=== PATIENT | male | born 1985 | race Caucasian/White ===

== ENCOUNTER 2020-12-03 10:09 | Outpatient (REF) | payer OTHER, SELFPAY ==
[2020-12-03 10:32] LABS: MANUAL DIFF FLAG NO
[2020-12-03 10:36] LABS: Basophils Absolute Auto 0.1 X10*3/uL (0.0-0.2); Basophils Percent Auto 1.3 % (0-2); Eosinophils Absolute Auto 0.2 X10*3/uL (0.0-0.4); Eosinophils Percent Auto 3.9 % (0-4); Imm Gran Abs Auto 0.01 X10*3/uL (0.00-0.03); Imm Gran Pct Auto 0.3 % (0.0-0.4); Lymphocytes Absolute Auto 1.6 X10*3/uL (1.2-4.9); Lymphocytes Percent Auto 42.2 % (20-40); Mean Corpuscular HGB Conc 33.3 g/dl (31.0-36.0); Mean Platelet Volume 10.2 fL (9.4-12.4); Monocytes Absolute Auto 0.5 X10*3/uL (0.1-1.2); Monocytes Percent Auto 12.2 % (2-11); Neutrophils Absolute Auto 1.5 X10*3/uL (2.0-8.3); Neutrophils Percent Auto 40.1 % (45-73); Platelet Count 190 X10*3/uL (160-400); Red Blood Count 4.84 X10*6/uL (4.60-5.80); Red Cell Distribution Width 13.8 % (11.0-16.0); White Blood Count 3.8 X10*3/uL (4.8-10.8)
[2020-12-03 11:00] LABS: Alanine Aminotransferase 981 U/L (0-40); Albumin Level 4.5 g/dL (3.5-5.0); Alkaline Phosphatase 152 U/L (39-117); Anion Gap 10 (12-20); Aspartate Amino Transferase 430 U/L (5-37); Bilirubin Total 1.4 mg/dL (0.0-1.0); Blood Urea Nitrogen 17 mg/dL (9-16); Calcium 9.9 mg/dL (8.4-10.2); Carbon Dioxide 30 mmol/L (22-29); Chloride 103 mmol/L (96-108); Cholesterol 139 mg/dL; Estimated Glomerular Filt Rate > 60; Glucose Fasting 91 mg/dL (60-99); HDL Cholesterol 52 mg/dL; LDL Cholesterol Calculated 66 mg/dl; Potassium 4.4 mmol/L (3.3-5.1); Sodium 139 mmol/L (135-145); Total Protein 7.7 g/dL (6.5-8.0); Triglycerides 106 mg/dL
[2020-12-05 08:18] LABS: HBsAGNum1 0.93 S/CO (0.00-0.99); Hepatitis B Surface Antigen Negative (Negative); ~HepC Num1 13.51 S/CO (0.00-0.79); ~Hepatitis C Antibody Reactive (Nonreactive)
[2020-12-05 08:30] LABS: Hepatitis B Core Antibody Nonreactive (Nonreactive); ~Hepatitis B Surface Antibody REACTIVE (Nonreactive)
[2020-12-07 08:35] LABS: HBS Num1 186.99 mIU/mL (0-7.99); HBc Num1 0.06 S/CO (0.00-0.79); Hepatitis A Antibody IgM 0.16 Index (0-0.79); ~Hepatitis A Antibody IgM Nonreactive (Nonreactive)
== END 2020-12-03 10:10 | disposition home or self-care (01) ==
LOC: HO.LAB 10:09
PROVIDERS: PCP Nurse Practitioner Family; Visit Provider Nurse Practitioner Family
DX: B19.20 Unspecified viral hepatitis C without hepatic coma (principal)
CPT/HCPCS: 36415; 80053; 80061; 85025; 86704; 86706; 86709; 86803; 87340

== ENCOUNTER → 2021-03-09 09:25 | Outpatient (BNVA) | payer OTHER, SELFPAY | PROVIDERS: PCP Nurse Practitioner Family; Referring Provider Nurse Practitioner Family; Visit Provider Internal Medicine Gastroenterology | DX: B19.20 Unspecified viral hepatitis C without hepatic coma (principal); Z79.899 Other long term (current) drug therapy | CPT/HCPCS: 99202 ==

== ENCOUNTER 2021-03-17 09:22 | Outpatient (REF) | payer OTHER, SELFPAY ==
--- NOTE | ~2021-03-17 | US_ITS ---
EXAMINATION: US ABDOMEN COMPLETE CLINICAL INFORMATION: Hepatitis C. COMPARISON: CT abdomen and pelvis 01/11/2020. TECHNIQUE: Real-time imaging of the abdominal viscera. FINDINGS: PANCREAS: Normal. ABDOMINAL AORTA: The proximal, mid, and distal segments are normal in caliber. INFERIOR VENA CAVA: Visualized portions are normal. LIVER: Normal. The liver is normal in size. The liver contour is normal. Parenchymal echogenicity is normal. No focal hepatic lesion. There is no intrahepatic biliary duct dilatation seen. GALLBLADDER: Normal. The gallbladder is physiologically distended without evidence of stones, sludge, polyps, wall thickening or pericholecystic fluid. COMMON BILE DUCT: Normal in caliber measuring 0.4 cm in diameter. RIGHT KIDNEY: Normal. No hydronephrosis. No renal calculi or focal parenchymal lesions. The kidney measures 11.7 cm in maximum dimension. LEFT KIDNEY: Normal. No hydronephrosis. No renal calculi or focal parenchymal lesions. The kidney measures 11.1 cm in maximum dimension. SPLEEN: Normal. The spleen measures 10.5 cm in maximum dimension. FREE FLUID: None. US/US abdomen complete IMPRESSION: No significant abnormality on ultrasound of the abdomen appreciated. No hepatic mass identified.
== END 2021-03-17 09:23 | disposition home or self-care (01) ==
LOC: HO.HMGCX 09:22
PROVIDERS: PCP Internal Medicine; Visit Provider Internal Medicine Gastroenterology
DX: B19.20 Unspecified viral hepatitis C without hepatic coma (principal)
CPT/HCPCS: 76700

== ENCOUNTER 2021-06-08 07:43 | Outpatient (REF) | payer OTHER, SELFPAY ==
[2021-06-08 08:28] LABS: Hematocrit 43.7 % (42-52); Hemoglobin 14.9 g/dl (14.0-18.0); Mean Corpuscular HGB Conc 34.1 g/dl (31.0-36.0); Mean Corpuscular Volume 90.9 fL (80-98); Mean Platelet Volume 10.4 fL (9.4-12.4); Platelet Count 188 X10*3/uL (160-400); Red Blood Count 4.81 X10*6/uL (4.60-5.80); Red Cell Distribution Width 12.1 % (11.0-16.0); White Blood Count 5.1 X10*3/uL (4.8-10.8)
[2021-06-08 08:57] LABS: Alanine Aminotransferase 246 U/L (0-40); Albumin Level 4.6 g/dL (3.5-5.0); Alkaline Phosphatase 74 U/L (39-117); Aspartate Amino Transferase 107 U/L (5-37); Bilirubin Direct 0.4 mg/dL (0.0-0.5); Iron 135 mcg/dL (45-160); Percent Iron Saturation 36 % (15-50); Total Iron Binding Capacity 373 mcg/dL (228-428); Total Protein 7.5 g/dL (6.5-8.0); Unsaturated Iron Binding 238 ug/dL
[2021-06-08 09:18] LABS: Ferritin 177 ng/mL (20-250); TSH reflex Free T4 0.96 uIU/mL (0.32-4.0)
[2021-06-09 08:58] LABS: HIV AB/AG Nonreactive (Nonreactive); HIV Num 1 0.08 S/CO (0.00-0.99)
[2021-06-09 09:01] LABS: Hepatitis A Antibody IgG Nonreactive (Nonreactive); ~Hepatitis A Antibody IgG 0.27 S/CO (0.00-0.99)
[2021-06-12 16:12] LABS: Smooth Muscle Antibody <20 U (<20)
[2021-06-13 14:31] LABS: Anti Nuclear Antibody Screen POSITIVE (NEGATIVE); Anti Nuclear Antibody Titer 1:40 titer
[2021-06-13 20:07] LABS: FIB-ALT 216 U/L (9-46); FIB-Alpha-2-Macroglobulin 199 mg/dL (106-279); FIB-Apolipoprotein A1 137 mg/dL (94-176); FIB-GGT 117 U/L (3-90); FIB-Haptoglobin 24 mg/dL (43-212); FIB-Total Bilirubin 0.9 mg/dL (0.2-1.2); Liver Fibrosis Score 0.63; Liver Fibrosis Stage F3; Nec Inflam Act Grade A3; Nec Inflam Act Score 0.89
== END 2021-06-08 07:44 | disposition home or self-care (01) ==
LOC: HO.LAB 07:43
PROVIDERS: PCP Internal Medicine; Visit Provider Internal Medicine Gastroenterology
DX: B19.20 Unspecified viral hepatitis C without hepatic coma (principal)
CPT/HCPCS: 36415; 80076; 81596; 82728; 83540; 84443; 85027; 86038; 86039; 86255; 86708; 87389; 99212

== ENCOUNTER 2021-10-06 15:08 | Emergency (ER) | payer OTHER, SELFPAY | END 2021-10-06 17:04 | disposition left against medical advice (07) | PROVIDERS: Emergency Provider Emergency Medicine | DX: R51.9 Headache, unspecified (principal); Z20.822 Contact with and (suspected) exposure to COVID-19 ==

== ENCOUNTER 2021-10-13 10:34 | Emergency (ER) | payer OTHER, SELFPAY ==
[2021-10-13 11:21] VITALS: BP 151/76; PULSE 66; RESP 18; TEMP 36.9; O2SAT 100; BMI 29.0
[2021-10-13 11:47] LABS: COVID-19 Test Negative (Negative)
--- NOTE | 2021-10-13 14:23 | ED.HA ---
HPI - Headache General Chief Complaint: Headache Stated Complaint: headache Time Seen by Provider: 10/13/21 14:11 Source: patient Mode of arrival: ambulatory History of Present Illness HPI Narrative: 36-year-old male with past medical history hepatitis-C, migraines, presenting to the ED complaining of 10 days of migraine headache noted behind left eye radiating to left ear. Also reports mild photosensitivity. Reports headache has been intermittent, relieved with Tylenol/ Motrin at home, however recurring daily, denies taking any analgesics today. Admits to similar symptoms in the past however worse now. Denies fever, chills, vision change/ loss, nausea/ vomiting, headache be maximal onset. MD elicited complaint: headache and migraine Onset (ago): day(s) Related Data Home Medications Medication Instructions Recorded Confirmed buprenorphine 8 mg-naloxone 2 mg 2 film SUBLINGUAL DAILY 11/30/20 06/08/21 sublingual film (Suboxone) Previous Rx's Medication Instructions Recorded hnvpbwitac-xuwiilcrezenn-ozwtdpkp 1 cap PO Q4-6H PRN #10 cap 10/13/21 50 mg-300 mg-40 mg capsule (Fioricet) Allergies Allergy/AdvReac Type Severity Reaction Status Date / Time No Known Allergies Allergy Mild NOT Verified 10/13/21 11:21 APPLICABLE Review of Systems Review of Systems: Constitutional: No Fever, No Chills, No Fatigue, No Malaise ENT/Mouth: No Ear Pain, No Nasal Congestion, No Sinus Pain, No Hoarseness, No sore throat Eyes: No Eye Pain, No Swelling, No Discharge, No Vision Changes, + photophobia Cardiovascular: No Chest Pain, No SOB Respiratory: No Cough, No Dyspnea Gastrointestinal: No Nausea, No Vomiting,No Abdominal pain Genitourinary: No Dysuria, No Urinary Frequency, No Hematuria, No Flank Pain Musculoskeletal: No joint pain, No Myalgias, No Joint Swelling Skin: No Skin Lesions, No rash Neuro: No Weakness, No Numbness, No Paresthesias, No Dizziness, + Headache Yes all other systems are reviewed and are negative [facility] Past Medical History Attestation statement: The following information was validated with the patient. Medical History Hepatitis C Surgical History History of appendectomy Hx of hand surgery Family History Family History Father In good health Mother In good health Daughter In good health Son In good health Son In good health Sister No problems noted. Sister No problems noted. Brother No problems noted. Brother No problems noted. Social History Social History Household Members: Family Alcohol intake: current Cigarettes Per Day: 4 Advance Directives: No Advance Directives Information Provided: No Physical Exam Vital Signs: Vital Signs: Last Vital Signs Temp 98.4 F 10/13/21 11:21 Pulse 66 10/13/21 11:21 Resp 18 10/13/21 11:21 BP 151/76 H 10/13/21 11:21 Pulse Ox 100 10/13/21 11:21 BMI result Body Mass Index 29.0 Const: General: cooperative, healthy appearing, no acute distress, well developed, alert and awake Orientation/consciousness: patient oriented x3 Limitations: no limitations HENMT: Head: Yes normal to inspection and Yes atraumatic Ears: hearing grossly normal bilaterally, external ears normal and TM's normal bilaterally General nose exam: Normal external nose present Face and sinus: Yes normal facial exam Mouth: Normal oral and palatal mucosa present Throat: Yes posterior oropharynx normal and Yes tonsils normal Eyes: General: appearance normal, both eyes and all related structures Pupils: Equal, round and reactive pupils present EOM: EOMs intact bilaterally Direct Ophthalmoscopy: normal light reflex and no photophobia Neck: Neck: Yes normal visual inspection, Yes full ROM, Yes no lymphadenopathy and Yes no meningeal signs Resp: Effort & Inspection: normal respiratory effort and no respiratory distress Auscultation: clear to auscultation bilaterally Cardio: Rate: regular rate Heart sounds: S1 normal heart sound present and S2 normal heart sound present GI: Inspection: Yes normal to inspection : General: Yes no CVA tenderness Back/Spine/Pelvis: Back: no CVA tenderness Skin: Rashes: no rashes Wounds: no wounds Neuro: General: patient oriented x3, gait normal, tone normal, moves all extremities, no meningeal signs, no focal motor deficits and CN's II-XI intact bilaterally Cranial nerves: Yes Equal, round and reactive pupils present Gait exam (Neuro): Normal gait present Motor exam (neuro): 5/5 motor strength present throughout Extrem: General: Yes normal to inspection Course Course Course Narrative: -1453-- labs unremarkable. On re-evaluation patient reports symptomatic improvement / resolution, feels safe for discharge home at this time. Worrisome signs and symptoms and strict return precautions discussed. Will DC patient home with Fioricet MDM - Headache MDM Narrative Medical decision making narrative: 36-year-old male with past medical history hepatitis-C, migraines, presenting to the ED complaining of 10 days of migraine headache noted behind left eye radiating to left ear. On exam vital signs stable, NAD, nontoxic appearing, no meningeal signs. Concern for migraine headache/tension headache vs viral syndrome/ COVID-19. Low concern for SAH, meningitis, or CVT Plan: Labs, IVF, symptomatic treatment, re-evaluated Differential Diagnosis Differential diagnosis: Likely migraine, tension headache and headache Medical Records Attestation: I reviewed the patient's medical records. Lab Data Attestation: I reviewed the patient's lab results. Result diagrams: 10/13/21 14:28 10/13/21 14:28 Labs: Lab Results 10/13/21 10/13/21 10/13/21 Range/Units 11:26 14:28 14:28 WBC 6.6 (4.8-10.8) X10*3/uL RBC 4.70 (4.60-5.80) X10*6/uL Hgb 14.5 (14.0-18.0) g/dl Hct 43.1 (42.0-52.0) % MCV 91.7 (80.0-98.0) fL MCH 30.9 (27.0-33.0) pg MCHC 33.6 (31.0-36.0) g/dl RDW 12.9 (11.0-16.0) % Plt Count 202 (160-400) X10*3/uL MPV 10.2 (9.4-12.4) fL Immature Gran % (Auto) 0.2 (0.0-0.4) % Neut % (Auto) 55.7 (45-73) % Lymph % (Auto) 32.1 (20-40) % Blanco % (Auto) 8.9 (2-11) % Eos % (Auto) 2.3 (0-4) % Baso % (Auto) 0.8 (0-2) % Lymph # (Auto) 2.1 (1.2-4.9) X10*3/uL Blanco # (Auto) 0.6 (0.1-1.2) X10*3/uL Eos # (Auto) 0.2 (0.0-0.4) X10*3/uL Baso # (Auto) 0.1 (0.0-0.2) X10*3/uL Abs Immat Gran (auto) 0.01 (0.00-0.03) X10*3/uL Absolute Neuts (auto) 3.7 (2.0-8.3) x10*3/uL Absolute Nucleated RBC 0.000 (0.0-0.012) X10*3/uL Nucleated RBC % (auto) 0.0 (0.0-0.2) /100WBC Sodium 139 (135-145) mmol/L Potassium 4.0 (3.3-5.1) mmol/L Chloride 104 (96-108) mmol/L Carbon Dioxide 29 (22-29) mmol/L Anion Gap 10 L (12-20) BUN 14 (9-16) mg/dL Creatinine 0.79 (0.5-1.4) mg/dL Estim Creat Clear Calc 127.2 Estimated GFR > 60 Random Glucose 106 (60-115) mg/dL Calcium 9.4 (8.4-10.2) mg/dL COVID-19 (BERNARDA) Negative (Negative) COVID-19 Clin Com See Note Discharge Plan Discharge Clinical Impression: Migraine Qualifiers: Migraine type: unspecified Status migrainosus presence: without status migrainosus Intractability: not intractable Qualified Code(s): G43.909 - Migraine, unspecified, not intractable, without status migrainosus Patient Disposition: Home, Self-Care Instructions: Tension Headache (ED) Additional Instructions: your blood work was reassuring today in the emergency department. Push fluids at home, rest Fioricet is a combination migraine medication, take as needed you may also continue to take Motrin/ ibuprofen at home if headaches persist / worsen, become unbearable, you have persistent nausea/ vomiting, vision change or loss please return to the emergency department Prescriptions: New rucwsvukmw-ltlfmxutoejfh-cmsr [Fioricet] 50-300-40 mg capsule 1 cap PO Q4-6H PRN (Reason: headache) Qty: 10 RF: 0 No Action buprenorphine-naloxone [Suboxone] 8-2 mg film 2 film sublingual DAILY RF: 0 Referrals: Physician,Unknown J [Primary Care Provider] - 2 days
[2021-10-13 14:35] LABS: MANUAL DIFF FLAG NO
[2021-10-13 14:36] LABS: Basophils Absolute Auto 0.1 X10*3/uL (0.0-0.2); Basophils Percent Auto 0.8 % (0-2); Eosinophils Absolute Auto 0.2 X10*3/uL (0.0-0.4); Eosinophils Percent Auto 2.3 % (0-4); Hematocrit 43.1 % (42.0-52.0); Hemoglobin 14.5 g/dl (14.0-18.0); Imm Gran Abs Auto 0.01 X10*3/uL (0.00-0.03); Imm Gran Pct Auto 0.2 % (0.0-0.4); Lymphocytes Absolute Auto 2.1 X10*3/uL (1.2-4.9); Lymphocytes Percent Auto 32.1 % (20-40); Mean Corpuscular HGB Conc 33.6 g/dl (31.0-36.0); Mean Corpuscular Hemoglobin 30.9 pg (27.0-33.0); Mean Corpuscular Volume 91.7 fL (80.0-98.0); Mean Platelet Volume 10.2 fL (9.4-12.4); Monocytes Absolute Auto 0.6 X10*3/uL (0.1-1.2); Monocytes Percent Auto 8.9 % (2-11); Neutrophils Absolute Auto 3.7 x10*3/uL (2.0-8.3); Neutrophils Percent Auto 55.7 % (45-73); Platelet Count 202 X10*3/uL (160-400); Red Cell Distribution Width 12.9 % (11.0-16.0); White Blood Count 6.6 X10*3/uL (4.8-10.8)
[2021-10-13] MEDS: Ketorolac Tromethamine 30 MG/ML VIAL 15 MG IVPUSH (14:36)
[2021-10-13] MEDS: diphenhydrAMINE HCL 50 MG/ML VIAL 12.5 MG IVPUSH (14:38)
[2021-10-13] MEDS: Metoclopramide HCl 10 MG/2 ML VIAL IVPUSH (14:39)
[2021-10-13 14:49] LABS: Anion Gap 10 (12-20); Blood Urea Nitrogen 14 mg/dL (9-16); Calcium 9.4 mg/dL (8.4-10.2); Carbon Dioxide 29 mmol/L (22-29); Chloride 104 mmol/L (96-108); Creatinine Clr Calc Pharmacy 127.2; Estimated Glomerular Filt Rate > 60; Glucose Random 106 mg/dL (60-115); Sodium 139 mmol/L (135-145)
== END 2021-10-13 15:22 | disposition home or self-care (01) ==
PROVIDERS: Physician Assistant; Emergency Provider Emergency Medicine
DX: G43.909 Migraine, unspecified, not intractable, without status migrainosus (principal); Z20.822 Contact with and (suspected) exposure to COVID-19; Z79.899 Other long term (current) drug therapy
CPT/HCPCS: 36415; 80048; 85025; 87635; 96374; 96375; 99284; J1200; J1885; J2765

== ENCOUNTER 2022-05-21 | Outpatient (REF) | payer OTHER, SELFPAY ==
[2022-05-21 14:56] LABS: Influenza A PCR NEGATIVE (Negative); Influenza B PCR NEGATIVE (Negative); Resp Syncy Virus RNA Qual PCR NEGATIVE (Negative); SARS COV2 PCR INHOUSE NEGATIVE (Negative)
== END 2022-05-21 00:01 | disposition home or self-care (01) ==
LOC: HO.LNP
PROVIDERS: Visit Provider Physician Assistant
DX: Z20.822 Contact with and (suspected) exposure to COVID-19 (principal)
CPT/HCPCS: 0241U

== ENCOUNTER 2022-06-21 09:22 | Emergency (ER) | payer OTHER, SELFPAY ==
--- NOTE | ~2022-06-21 | CT_ITS ---
EXAMINATION: CT LUMBAR SPINE WITHOUT CONTRAST CLINICAL INFORMATION: 36-year-old male with history of sudden onset lower back pain. COMPARISON: CT abdomen/pelvis from 01/11/2020. TECHNIQUE: Noncontrast multidetector CT imaging examination of the lumbar spine is performed. The axial images and multiplanar reformatted images are reviewed. This CT examination was performed using dose optimization techniques as appropriate, variously including the following: *Automated exposure control *Adjustment of mA and/or kV according to patient size (this includes techniques or standardized protocols for targeted exams where dose is matched to indication/reason for exam; i.e. extremities or head) *Use of iterative reconstruction technique DLP; 369 mGy-cm FINDINGS: No acute findings in the lumbosacral spine compared to 01/11/2020. The lumbar vertebra have normal density, height and alignment. No vertebral compression fracture or pars interarticularis defect. No focal lytic or osteoblastic lesion. The intervertebral disc spaces are normal at T12-L1, L1-L2, L2-L3, L3-L4 and L4-L5. At L5-S1, there is chronic mild narrowing of the posterior disc space and minimal posterior disc bulge. No significant narrowing of the spinal canal or neural foramina of the lumbar spine. The visualized sacral ala, foramina and sacroiliac joints are unremarkable. The paraspinal soft tissues have normal attenuation. No soft tissue mass or fluid collection. The visualized abdominal aorta, kidneys and retroperitoneal fat planes are maintained. CT/CT lumbar spine wo IV con IMPRESSION: No specific cause of back pain is identified. No acute abnormalities in the lumbosacral spine compared to 01/11/2020. No lytic lesions or compression fractures. There is no evidence of acute disc herniation, spinal canal stenosis or neural foraminal stenosis.
[2022-06-21 09:24] VITALS: BP 148/78; PULSE 99; RESP 18; TEMP 36.9; O2SAT 96; BMI 29.3
[2022-06-21] MEDS: Ketorolac Tromethamine 60 MG/2 ML VIAL IM (11:49)
[2022-06-21] MEDS: Cyclobenzaprine HCl 10 MG TABLET PO (11:49)
[2022-06-21] MEDS: predniSONE 20 MG TABLET 60 MG PO (11:50)
--- NOTE | 2022-06-21 12:46 | ED.BACK ---
HPI - Back Pain/Injury General Chief Complaint: Back Pain/Injury Stated Complaint: Lower back pain Time Seen by Provider: 06/21/22 11:15 Source: patient Mode of arrival: ambulatory Limitations: no limitations History of Present Illness HPI Narrative: 36-year-old male presenting with sudden onset back pain last night. Patient states he was sitting at his table after work, when he developed sudden severe onset of lower back pain. Denies any inciting incident. 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 Reports pain is relieved while he is lying flat on his back, and is worse when he is walking around, moving, or bending over. Patient was able to walk in with antalgic gait. Patient does report previous incident with similar symptoms in 2007 when he was in [employer] and he was lifting weights. Reports pain resolved within 4 days at that time. Denies headache, dizziness, chest pain, cough, shortness of breath, nausea, vomiting, diarrhea, incontinence of bowel or bladder, weakness, paresthesias, recent IVDU. MD elicited complaint: back pain Pertinent past history: prior back pain Onset (ago): day(s) Severity: severe Pain scale (0-10): 8 Similar Symptoms Previously: Yes Location: lumbar spine Radiation: none Exacerbating factors: walking and other (Bending) Relieving factors: medication (Mild relief with ibuprofen) and other (Laying flat) Associated symptoms: denies other symptoms Treatments prior to arrival: NSAIDS Related Data Home Medications Medication Instructions Recorded Confirmed buprenorphine 8 mg-naloxone 2 mg 2 film sublingual DAILY 11/30/20 10/18/21 sublingual film (Suboxone) Previous Rx's Medication Instructions Recorded dpwzikqnza-ksgonhowdegvh-qhttuubd 1 tab PO Q6H PRN pain #14 tabs 10/18/21 50 mg-325 mg-40 mg tablet carbamide peroxide 6.5 % ear drops 5 drp otic (ears) DAILY 4 days #15 10/18/21 (Debrox) mL ibuprofen 800 mg tablet 800 mg PO Q8H PRN pain #14 tabs 10/18/21 cyclobenzaprine 10 mg tablet 10 mg PO TID PRN pain #14 tabs 06/21/22 ketorolac 10 mg tablet 10 mg PO Q8H PRN pain #14 tabs 06/21/22 Allergies Allergy/AdvReac Type Severity Reaction Status Date / Time No Known Allergies Allergy Mild NOT Verified 10/18/21 14:45 APPLICABLE Review of Systems Review of Systems: Constitutional : No trauma, No Weight loss, No Fever, No Chills, ENT/Mouth : No Hearing loss, No Ear Pain, No Nasal Congestion, No Sinus Pain, No Hoarseness, No sore throat, No Rhinorrhea, No Swallowing Difficulty Cardiovascular : No Chest Pain, No SOB Respiratory : No Cough, No Dyspnea Gastrointestinal : No Nausea, No Vomiting, No Diarrhea, No abdominal Pain, No Hematochezia, No Melena Genitourinary : No Dysuria, No Urinary Frequency, No Hematuria, No Urinary or Bowel Incontinence/retention Musculoskeletal : + Back pain, No neck pain, No joint stiffness, No joint swelling Skin : No Skin Lesions, No rash or signs of infection Neuro : No Weakness, No radiation, No Numbness, No Paresthesias, No headache, no loss of bowel or bladder incontinence, no saddle anesthesia + history of IV drug usage although not within last 2 years is currently on Suboxone. Yes all other systems are reviewed and are negative [facility] Past Medical History Attestation statement: The following information was validated with the patient. Source: old records reviewed, obtained from family and nursing notes reviewed Medical History Hepatitis C Surgical History History of appendectomy Hx of hand surgery Family History Family History Father In good health Mother In good health Daughter In good health Son In good health Son In good health Sister No problems noted. Sister No problems noted. Brother No problems noted. Brother No problems noted. Social History Social History Household Members: Family Alcohol intake: current Patient Tobacco Use Status: Current everyday Tobacco user Cigarettes Per Day: 4 e-Cigarette/Vaping Use: Never Used Advance Directives: No Advance Directives Information Provided: No Physical Exam Vital Signs: Vital Signs: Last Vital Signs Temp 98.4 F 06/21/22 09:24 Pulse 99 06/21/22 09:24 Resp 18 06/21/22 09:24 BP 148/78 H 06/21/22 09:24 Pulse Ox 96 09/15/22 09:24 O2 Del Method 06/21/22 09:24 BMI result Body Mass Index 29.3 vital signs have been reviewed as normal and appeared to be correct. Blood pressure 148/78. Heart rate normal. Respiration rate normal. Temperature normal. Oxygen saturation normal. Appearance: Alert. Oriented X3. No acute distress. Head: Normal external exam. Normocephalic. Atraumatic. Eyes: PERRLA. EOMI. Conjunctiva and sclera normal. Eyelids normal. ENT: EAC normal. Pharynx normal. Uvula midline. Moist mucous membranes. No trismus noted. No drooling noted. No muffled voice noted. Neck: Normal inspection. Neck supple. FROM. No adenopathy. Thyroid Normal. No meningeal signs. No neck mass noted. CVS: Normal heart rate and rhythm. Heart sound normal. No murmurs noted. Respiratory: No respiratory distress. Painless inspiration. Breath sounds normal. No wheezes/rales/rhonchi noted. Chest nontender. No accessory muscle usage noted or decreased air movement noted. Abdomen: Soft and nontender. Bowel sounds normal in all 4 quadrants. No distention noted. No organomegaly noted. No visible injury noted. Back: + midline point tenderness of lumbar spine. No CVA tenderness. Range of motion limited due to pain. No obvious deformities, or edema. 5/5 strength hip extension/flexion, abduction, adduction. Negative straight leg raise bilaterally. No rashes/lesion/induration/fluctuance or signs infection noted. Skin: Skin warm and dry. Normal skin color. Normal skin turgor. No rashes/lesions/lacerations noted. Extremities: No lower extremity edema. Extremities exhibit normal range of motion. Extremities nontender. Neuro: Oriented X 3. No motor deficit. No sensory deficit. Reflexes normal. Patient has a normal steady gait. Course Course Course Narrative: 36-year-old male presenting with sudden,severe onset of back pain last night, has had previous episode 14 years ago. On exam, point midline tenderness to lumbar spine, no paraspinal muscle tenderness, negative straight leg test, full strength in lower extremities, range of motion limited due to pain. Patient does have history of IV drug use, but denies use within past 2 years. Concern for disc herniation vs muscle spasm, lower suspicion for osteomyelitis, no signs or symptoms of cauda equina. Reevaluation(s) Reevaluation #1: Patient decreased to 6/10 after IM torodol. Time: 13:07 Reevaluation #2: CT lumbar spine wo IV con IMPRESSION: No specific cause of back pain is identified. No acute abnormalities in the lumbosacral spine compared to 01/11/2020. No lytic lesions or compression fractures. There is no evidence of acute disc herniation, spinal canal stenosis or neural foraminal stenosis. At this time, patient stable and pain improved with IM torodol. Results of CT show no signs acute disc herniation,spinal canal stenosis or neural foraminal stenosis. No signs of infection, low concern for osteomyelitis. No neuologic deficits.Pain most likely muscular in nature. Patient stable for discharge home with NSAIDs and muscle relaxers for pain management. MDM - Back Pain/Injury Medical Records Attestation: I reviewed the patient's medical records. Imaging Data CT scan of lumbar spine without contrast: Attestation: I personally reviewed and interpreted this imaging study as follows: Radiologist's impression: FINDINGS: No acute findings in the lumbosacral spine compared to 01/11/2020. The lumbar vertebra have normal density, height and alignment. No vertebral compression fracture or pars interarticularis defect. No focal lytic or osteoblastic lesion. The intervertebral disc spaces are normal at T12-L1, L1-L2, L2-L3, L3-L4 and L4-L5. At L5-S1, there is chronic mild narrowing of the posterior disc space and minimal posterior disc bulge. No significant narrowing of the spinal canal or neural foramina of the lumbar spine. The visualized sacral ala, foramina and sacroiliac joints are unremarkable. The paraspinal soft tissues have normal attenuation. No soft tissue mass or fluid collection. The visualized abdominal aorta, kidneys and retroperitoneal fat planes are maintained. CT/CT lumbar spine wo IV con IMPRESSION: No specific cause of back pain is identified. No acute abnormalities in the lumbosacral spine compared to 01/11/2020. No lytic lesions or compression fractures. There is no evidence of acute disc herniation, spinal canal stenosis or neural foraminal stenosis.? Critical Care Time Critical Care Time Critical Care Time: No Discharge Plan Discharge Clinical Impression: Back pain Patient Disposition: Home, Self-Care Instructions: Acute Low Back Pain (ED) Additional Instructions: Take prescribed medications for severe pain. Follow-up with PCP within 2 days. If you develop new or worsening symptoms, call 911 or report to the emergency department for evaluation. Prescriptions: New cyclobenzaprine 10 mg tablet 10 mg PO TID PRN (Reason: pain) Qty: 14 0RF ketorolac 10 mg tablet 10 mg PO Q8H PRN (Reason: pain) Qty: 14 0RF Rx Instructions: First dose given in the ED IM, patient tolerated well No Action buprenorphine-naloxone [Suboxone] 8-2 mg film 2 film sublingual DAILY Rx Instructions: place 1 strip/tab under (each) side of tongue Debrox 6.5 % drops 5 drp otic (ears) DAILY 4 Days Qty: 15 0RF ibuprofen 800 mg tablet 800 mg PO Q8H PRN (Reason: pain) Qty: 14 0RF qojwrlqoxp-onmpyujtjyfma-xfhj 50-325-40 mg tablet 1 tab PO Q6H PRN (Reason: pain) Qty: 14 0RF Rx Instructions: please cancel previous RX for 60 tablets, and fill this RX for 14 Referrals: April Gill MD [Primary Care Provider] - 2 days Stand Alone Forms: Work/School Release Interventions: ED Discharge Assessment Last Done: 06/21/22 14:31 Discharge Date/Time: 06/21/22 14:31
== END 2022-06-21 14:31 | disposition home or self-care (01) ==
PROVIDERS: Emergency Provider Emergency Medicine; PCP Internal Medicine
DX: M54.50 Low back pain, unspecified (principal); Z79.899 Other long term (current) drug therapy; F17.210 Nicotine dependence, cigarettes, uncomplicated; Z71.6 Tobacco abuse counseling
CPT/HCPCS: 72131; 96372; 99283; 99284; J1885

== ENCOUNTER 2023-06-27 16:44 | Outpatient (REF) | payer MEDICAID, SELFPAY ==
[2023-06-27 17:06] LABS: MANUAL DIFF FLAG NO
[2023-06-27 17:25] LABS: Basophils Absolute Auto 0.1 X10*3/uL (0.0-0.2); Eosinophils Absolute Auto 0.2 X10*3/uL (0.0-0.4); Eosinophils Percent Auto 3.5 % (0-4); Hematocrit 43.2 % (42.0-52.0); Hemoglobin 14.6 g/dl (14.0-18.0); Imm Gran Abs Auto 0.02 X10*3/uL (0.00-0.03); Imm Gran Pct Auto 0.4 % (0.0-0.4); Lymphocytes Absolute Auto 1.7 X10*3/uL (1.2-4.9); Mean Corpuscular HGB Conc 33.8 g/dl (31.0-36.0); Mean Corpuscular Hemoglobin 29.8 pg (27.0-33.0); Mean Corpuscular Volume 88.2 fL (80.0-98.0); Mean Platelet Volume 10.3 fL (9.4-12.4); Monocytes Absolute Auto 0.5 X10*3/uL (0.1-1.2); Monocytes Percent Auto 10.6 % (2-11); Neutrophils Absolute Auto 2.6 x10*3/uL (2.0-8.3); Neutrophils Percent Auto 50.5 % (45-73); Platelet Count 192 X10*3/uL (160-400); Red Cell Distribution Width 12.5 % (11.0-16.0); White Blood Count 5.1 X10*3/uL (4.8-10.8)
[2023-06-27 17:26] LABS: Prothrombin Time 12.7 SEC (11.1-13.3)
[2023-06-27 17:45] LABS: Alanine Aminotransferase 354 U/L (0-40); Albumin Level 4.6 g/dL (3.5-5.0); Alkaline Phosphatase 100 U/L (39-117); Anion Gap 12 (12-20); Aspartate Amino Transferase 181 U/L (5-37); Bilirubin Direct 0.2 mg/dL (0.0-0.5); Bilirubin Total 0.6 mg/dL (0.0-1.0); Blood Urea Nitrogen 18 mg/dL (9-16); Calcium 9.5 mg/dL (8.4-10.2); Carbon Dioxide 25 mmol/L (22-29); Chloride 106 mmol/L (96-108); Estimated Glomerular Filt Rate > 60; Glucose Random 96 mg/dL (60-115); Potassium 3.9 mmol/L (3.3-5.1); Sodium 139 mmol/L (135-145)
[2023-06-28 03:37] LABS: CT PCR NOT DETECTED (Not Detect.); NG PCR NOT DETECTED (Not Detect.)
[2023-06-28 08:11] LABS: Syphilis Screen Nonreactive (Nonreactive)
[2023-06-28 08:28] LABS: Hepatitis A Antibody IgG REACTIVE (Nonreactive); ~Hepatitis A Antibody IgG 1.81 S/CO (0.00-0.99)
[2023-06-28 08:31] LABS: ~HepC Num1 14.99 S/CO (0.00-0.79); ~Hepatitis C Antibody Reactive (Nonreactive)
[2023-06-29 14:14] LABS: TS Negative Control Passed; TS Panel A 1; TS Panel B 1; TS Positive Control Passed; TSpotTB Negative (Negative)
[2023-07-01 12:04] LABS: HCV Log PCR 6.05 Log IU/mL (NOT DETECTED); HepC Viral Load 1130000 IU/mL (NOT DETECTED)
== END 2023-06-27 16:45 | disposition home or self-care (01) ==
LOC: HO.LAB 16:44
PROVIDERS: Visit Provider Emergency Medicine
DX: F11.20 Opioid dependence, uncomplicated (principal)
CPT/HCPCS: 0353U; 80048; 80076; 85025; 85610; 86481; 86708; 86780; 86803; 87522

== ENCOUNTER 2023-08-13 11:05 | Emergency (ER) | payer MEDICAID, SELFPAY ==
--- NOTE | 2023-08-13 12:59 | ED_ITS ---
HPI - General Adult General Chief complaint: Headache Stated complaint: Headache Time Seen by Provider: 08/13/23 12:00 Source: patient, RN notes reviewed and old records reviewed Mode of arrival: ambulatory Limitations: no limitations History of Present Illness HPI narrative: A 37-year-old male presents for evaluation of headache. His pain is frontal, behind his eyes. He describes this as ?a migraine. ? He reports that he gets these headaches approximately once per month He takes Excedrin usually with some improvement in his symptoms but has not taken it today because his pain was more severe He is due to see Neurology this coming Saturday but ?I just could not wait. ? His symptoms have been present for 2 weeks He denies any trauma to head or neck He reports he has had several CT scans of his head in the past most recently 1 year ago Related Data Home Medications Medication Instructions Recorded Confirmed buprenorphine 8 mg-naloxone 2 mg 2 film sublingual DAILY 11/30/20 10/18/21 sublingual film (Suboxone) Previous Rx's Medication Instructions Recorded iwosdazbjq-yiocbjerxajbs-brmkhjnm 1 tab PO Q6H PRN pain #14 tabs 10/18/21 50 mg-325 mg-40 mg tablet carbamide peroxide 6.5 % ear drops 5 drp otic (ears) DAILY 4 days #15 10/18/21 (Debrox) mL ibuprofen 800 mg tablet 800 mg PO Q8H PRN pain #14 tabs 10/18/21 cyclobenzaprine 10 mg tablet 10 mg PO TID PRN pain #14 tabs 06/21/22 ketorolac 10 mg tablet 10 mg PO Q8H PRN pain #14 tabs 06/21/22 bramltnwzt-kebnwguexezmu-xvizpjyy 1 cap PO Q4-6H PRN headache #14 08/13/23 50 mg-300 mg-40 mg capsule caps (Fioricet) Allergies Allergy/AdvReac Type Severity Reaction Status Date / Time No Known Allergies Allergy Mild NOT Verified 08/13/23 13:02 APPLICABLE Review of Systems 2 Constitutional: Constitutional: Denies chills, Denies fever(s) and Reports headache(s) Eyes: Eyes: Denies blurry vision and Denies loss of vision ENT: Reports headache(s) Cardiovascular: Cardiovascular: Denies chest pain and Denies dyspnea Respiratory: Respiratory: Denies cough and Denies dyspnea Gastrointestinal: Gastrointestinal: Denies abdominal pain, Denies nausea and Denies vomiting Musculoskeletal: Musculoskeletal: Denies back pain, Denies numbness and Denies tingling Neurologic: Reports headache(s), Denies loss of vision, Denies numbness, Denies tingling and Denies paresthesias PMF Past Medical History Medical History Hepatitis C Surgical History History of appendectomy Hx of hand surgery Family History Family History Father In good health Mother In good health Daughter In good health Son In good health Son In good health Sister No problems noted. Sister No problems noted. Brother No problems noted. Brother No problems noted. Social History Social History Household Members: Family Alcohol intake: current Patient Tobacco Use Status: Current everyday Tobacco user Cigarettes Per Day: 4 e-Cigarette/Vaping Use: Never Used Advance Directives: No Physical Exam ED Vital Signs: Vital Signs - 24 hr 08/13/23 13:00 08/13/23 18:44 Temperature 97.0 F 98.1 F Pulse Rate 64 64 Respiratory Rate 18 20 Blood Pressure 140/81 H 139/61 Pulse Oximetry 98 97 Oxygen Delivery Method Room Air Room Air BMI result Body Mass Index 29.2 Const General: healthy appearing, comfortable, no acute distress, alert and awake Nutritional Appearance: well nourished Orientation/consciousness: patient oriented x3 HENMT Head: Yes normocephalic and Yes atraumatic Face and sinus: Yes sinuses nontender and Yes face symmetric Eyes Eyelids: Yes eyelids normal Conjunctivae: conjunctivae normal Sclerae: sclerae normal Corneas: corneas normal Pupils: Equal, round and reactive pupils present EOM: EOMs intact bilaterally Neck Neck: Yes full ROM Resp Effort & Inspection: normal respiratory effort, able to speak in complete sentences and not labored Skin General skin exam: elasticity normal Neuro General: patient oriented x3 Cranial nerves: Yes CN's II-XII intact bilaterally, Yes Equal, round and reactive pupils present and Yes Bilaterally intact EOM present Cognition (Neuro): normal cognition Extrem Other: Moving all extremities well without any obvious deformities Course Course Course Narrative: RME performed by Tori Agee PA-C. Patient is a 37 year old assigned male at presenting to the emergency department with a headache. Patient has a history of migraines. Labs and swabs ordered. Patient placed back in the waiting room pending room availability and results. Medical Decision Making Medical Decision Making [facility] Narrative: 37-year-old male presents for evaluation of headaches. He reports a history of headaches approximately once per month. Denies any trauma to head or neck. He has no neuro deficits on exam. No fevers to suggest infectious causes headache. His sinuses are nontender despite reporting pain behind his eyes. Will treat with Toradol and Fioricet and he has appropriate follow up with Neurology this coming Saturday in 3 days. Patient be discharged with symptomatic care. I do not see any indication for emergent imaging at this time Differential Diagnosis Differential Diagnoses: The differential diagnosis associated with the presentation includes Acute headache Migraine headache Tension headache Cluster headache Sinusitis Lab Data [facility] Lab Attestation statement: I reviewed the patient's lab results. No leukocytosis or significant anemia. Normal platelet count. No significant electrolyte abnormalities. The patient's CO2 is just above normal at 34. He has a mild transaminitis which is consistent with his known history of hepatitis-C. 08/13/23 13:52 08/13/23 13:52 Labs: Lab Results 08/13/23 Range/Units 13:52 WBC 7.7 (4.8-10.8) X10*3/uL RBC 4.81 (4.60-5.80) X10*6/uL Hgb 14.6 (14.0-18.0) g/dl Hct 42.8 (42.0-52.0) % MCV 89.0 (80.0-98.0) fL MCH 30.4 (27.0-33.0) pg MCHC 34.1 (31.0-36.0) g/dl RDW 12.7 (11.0-16.0) % Plt Count 200 (160-400) X10*3/uL MPV 9.5 (9.4-12.4) fL Immature Gran % (Auto) 0.3 (0.0-0.4) % Neut % (Auto) 49.1 (45-73) % Lymph % (Auto) 38.4 (20-40) % [place] % (Auto) 10.1 (2-11) % Eos % (Auto) 1.3 (0-4) % Baso % (Auto) 0.8 (0-2) % Lymph # (Auto) 3.0 (1.2-4.9) X10*3/uL [place] # (Auto) 0.8 (0.1-1.2) X10*3/uL Eos # (Auto) 0.1 (0.0-0.4) X10*3/uL Baso # (Auto) 0.1 (0.0-0.2) X10*3/uL Abs Immat Gran (auto) 0.02 (0.00-0.03) X10*3/uL Absolute Neuts (auto) 3.8 (2.0-8.3) x10*3/uL Absolute Nucleated RBC 0.000 (0.0-0.012) X10*3/uL Nucleated RBC % (auto) 0.0 (0.0-0.2) /100WBC Sodium 142 (135-145) mmol/L Potassium 4.1 (3.3-5.1) mmol/L Chloride 103 (96-108) mmol/L Carbon Dioxide 34 H (22-29) mmol/L Anion Gap 9 L (12-20) BUN 12 (9-16) mg/dL Creatinine 0.80 (0.5-1.4) mg/dL Estim Creat Clear Calc 137.2 Estimated GFR > 60 Random Glucose 72 (60-115) mg/dL Calcium 9.7 (8.4-10.2) mg/dL Magnesium 2.2 (1.6-2.6) mg/dL Total Bilirubin 1.6 H (0.0-1.0) mg/dL AST 183 H (5-37) U/L ALT 358 H (0-40) U/L Alkaline Phosphatase 93 (39-117) U/L Total Protein 8.0 (6.5-8.0) g/dL Albumin 4.6 (3.5-5.0) g/dL Influenza Type A (PCR) NEGATIVE (Negative) Influenza Type B (PCR) NEGATIVE (Negative) RSV RNA Qual (PCR) NEGATIVE (Negative) SARS-CoV-2 RNA (RT-PCR) NEGATIVE (Negative) Tests considered The following testing was considered but not selected: CT imaging of the head however this has been done previously in the patient has no neuro deficits Discharge Plan Discharge Clinical Impression: Headache Patient Disposition: Home, Self-Care Instructions: Acute Headache (ED) Additional Instructions: You may use ibuprofenl as needed for headaches. You may use Fioricet for more severe headaches that are unrelieved with ibuprofen Follow-up with neurology on Saturday as planned Prescriptions: New bbwhuqgipf-tintuamjtyrcj-vudk [Fioricet] 50-300-40 mg capsule 1 cap PO Q4-6H PRN (Reason: headache) Qty: 14 0RF No Action cyclobenzaprine 10 mg tablet 10 mg PO TID PRN (Reason: pain) Qty: 14 0RF ketorolac 10 mg tablet 10 mg PO Q8H PRN (Reason: pain) Qty: 14 0RF Rx Instructions: First dose given in the ED IM, patient tolerated well buprenorphine-naloxone [Suboxone] 8-2 mg film 2 film sublingual DAILY Rx Instructions: place 1 strip/tab under (each) side of tongue Debrox 6.5 % drops 5 drp otic (ears) DAILY 4 Days Qty: 15 0RF ibuprofen 800 mg tablet 800 mg PO Q8H PRN (Reason: pain) Qty: 14 0RF ctijbzzboj-zzqvthothdrkv-ckcy 50-325-40 mg tablet 1 tab PO Q6H PRN (Reason: pain) Qty: 14 0RF Rx Instructions: please cancel previous RX for 60 tablets, and fill this RX for 14
[2023-08-13 13:00] VITALS: BP 140/81; PULSE 64; RESP 18; TEMP 36.1; O2SAT 98; BMI 29.2
[2023-08-13 13:56] LABS: MANUAL DIFF FLAG NO
[2023-08-13 13:57] LABS: Basophils Absolute Auto 0.1 X10*3/uL (0.0-0.2); Basophils Percent Auto 0.8 % (0-2); Eosinophils Absolute Auto 0.1 X10*3/uL (0.0-0.4); Eosinophils Percent Auto 1.3 % (0-4); Hematocrit 42.8 % (42.0-52.0); Hemoglobin 14.6 g/dl (14.0-18.0); Imm Gran Abs Auto 0.02 X10*3/uL (0.00-0.03); Imm Gran Pct Auto 0.3 % (0.0-0.4); Lymphocytes Percent Auto 38.4 % (20-40); Mean Corpuscular HGB Conc 34.1 g/dl (31.0-36.0); Mean Corpuscular Hemoglobin 30.4 pg (27.0-33.0); Mean Platelet Volume 9.5 fL (9.4-12.4); Monocytes Absolute Auto 0.8 X10*3/uL (0.1-1.2); Monocytes Percent Auto 10.1 % (2-11); Neutrophils Absolute Auto 3.8 x10*3/uL (2.0-8.3); Neutrophils Percent Auto 49.1 % (45-73); Platelet Count 200 X10*3/uL (160-400); Red Blood Count 4.81 X10*6/uL (4.60-5.80); Red Cell Distribution Width 12.7 % (11.0-16.0); White Blood Count 7.7 X10*3/uL (4.8-10.8)
[2023-08-13 14:21] LABS: Alanine Aminotransferase 358 U/L (0-40); Albumin Level 4.6 g/dL (3.5-5.0); Alkaline Phosphatase 93 U/L (39-117); Anion Gap 9 (12-20); Aspartate Amino Transferase 183 U/L (5-37); Bilirubin Total 1.6 mg/dL (0.0-1.0); Blood Urea Nitrogen 12 mg/dL (9-16); Calcium 9.7 mg/dL (8.4-10.2); Carbon Dioxide 34 mmol/L (22-29); Chloride 103 mmol/L (96-108); Creatinine Clr Calc Pharmacy 137.2; Estimated Glomerular Filt Rate > 60; Glucose Random 72 mg/dL (60-115); Magnesium 2.2 mg/dL (1.6-2.6); Potassium 4.1 mmol/L (3.3-5.1); Sodium 142 mmol/L (135-145)
[2023-08-13 14:37] LABS: Influenza A PCR NEGATIVE (Negative); Influenza B PCR NEGATIVE (Negative); Resp Syncy Virus RNA Qual PCR NEGATIVE (Negative); SARS COV2 PCR INHOUSE NEGATIVE (Negative)
[2023-08-13 18:44] VITALS: BP 139/61; PULSE 64; RESP 20; TEMP 36.7; O2SAT 97
[2023-08-13] MEDS: Butalb/Acetamin/Caff 50/325/40 TABLET 1 TAB PO (20:25)
[2023-08-13] MEDS: Ketorolac Tromethamine 30 MG/ML VIAL IM (20:26)
== END 2023-08-13 20:30 | disposition home or self-care (01) ==
PROVIDERS: Physician Assistant Medical; Emergency Provider Internal Medicine; PCP Internal Medicine
DX: R51.9 Headache, unspecified (principal); B19.20 Unspecified viral hepatitis C without hepatic coma; F17.210 Nicotine dependence, cigarettes, uncomplicated; Z20.822 Contact with and (suspected) exposure to COVID-19; Z20.828 Contact with and (suspected) exposure to other viral communicable diseases
CPT/HCPCS: 0241U; 80053; 83735; 85025; 96372; 99283; 99284; J1885

== ENCOUNTER 2023-08-16 14:16 | Outpatient (REF) | payer MEDICAID, SELFPAY ==
[2023-08-17 04:05] LABS: HBS Num1 107.42 mIU/mL (0-7.99); HBc Num1 0.08 S/CO (0.00-0.79); HBsAGNum1 0.28 S/CO (0.00-0.99); HIV AB/AG Nonreactive (Nonreactive); HIV Num 1 0.09 S/CO (0.00-0.99); Hepatitis B Core Antibody Nonreactive (Nonreactive); Hepatitis B Surface Antigen Negative (Negative); ~Hepatitis B Surface Antibody REACTIVE (Nonreactive)
[2023-08-22 08:39] LABS: Hepatitis C Genotype 1a
[2023-08-22 16:39] LABS: FIB-ALT 232 U/L (9-46); FIB-Alpha-2-Macroglobulin 170 mg/dL (106-279); FIB-Apolipoprotein A1 149 mg/dL (94-176); FIB-GGT 133 U/L (3-90); FIB-Haptoglobin 28 mg/dL (43-212); FIB-Total Bilirubin 0.4 mg/dL (0.2-1.2); Liver Fibrosis Score 0.38; Liver Fibrosis Stage F1-F2; Nec Inflam Act Grade A3; Nec Inflam Act Score 0.86
== END 2023-08-16 14:17 | disposition home or self-care (01) ==
LOC: HO.HHCL 14:16
PROVIDERS: Visit Provider Emergency Medicine
DX: Z11.4 Encounter for screening for human immunodeficiency virus [HIV] (principal); B19.20 Unspecified viral hepatitis C without hepatic coma
CPT/HCPCS: 36415; 81596; 86704; 86706; 87340; 87389; 87902

== ENCOUNTER 2024-03-13 13:38 | Outpatient (REF) | payer MEDICAID, SELFPAY ==
[2024-03-13 16:29] LABS: Alanine Aminotransferase 16 U/L (0-40); Albumin Level 4.5 g/dL (3.5-5.0); Alkaline Phosphatase 83 U/L (39-117); Aspartate Amino Transferase 20 U/L (5-37); Bilirubin Direct 0.2 mg/dL (0.0-0.5); Bilirubin Total 0.7 mg/dL (0.0-1.0); Total Protein 7.5 g/dL (6.5-8.0)
[2024-03-18 08:33] LABS: HCV Log PCR <1.18 NOT DETECTED Log IU/mL (NOT DETECTED); HepC Viral Load <15 NOT DETECTED IU/mL (NOT DETECTED)
== END 2024-03-13 13:39 | disposition home or self-care (01) ==
LOC: HO.HHCL 13:38
PROVIDERS: Visit Provider Family Medicine
DX: B19.20 Unspecified viral hepatitis C without hepatic coma (principal)
CPT/HCPCS: 36415; 80076; 87522

== ENCOUNTER 2025-07-28 07:04 | Emergency (ER) | payer OTHER, SELFPAY ==
[2025-07-28 07:12] VITALS: BP 127/72; PULSE 65; RESP 18; TEMP 37; O2SAT 98; BMI 25.0
--- NOTE | 2025-07-28 07:20 | ED_ITS ---
HPI - General Adult General Chief complaint: General Medical Stated complaint: stomach pain, migraine Time Seen by Provider: 07/28/25 07:20 Source: patient Mode of arrival: ambulatory Limitations: no limitations History of Present Illness ED Provider: Tori Agee PA-C HPI narrative: This is a 39yo male who presents to the ED for chief complaints of migraine and abdominal pain. He has a history of migraines and hepatitis C. He describes the headache as behind his right eye and wrapping around the side of his head with associated photophobia. Patient states that he usually manages his migraines with OTC Excedrin and caffeine, but these are not working as effectively today and he still has a headache. He reports this is his 3rd migraine attack this year and this current episode started this week. Previous episodes generally start at night with pain awakening him from sleep. He reports seeing neurologists at [facility] a couple years ago and was prescribed a blue pill that he was suppose to take 4 times a day, however, the prescription for this medication was taken over by his primary care and he has not been able to see his PCP due to his work schedule. He states that the medication has worked well for him when has has taken it. Additionally, he complains of epigastric pain with eating and associated early satiety. He endorses feeling of fullness in his throat and a sour taste in his mouth. He denies ever having this pain similar to this in the past. He has managed so far with sitting upright when possible. Denies chest pain, shortness of breath, nausea and vomiting. Onset (ago): day(s) Location: head and abdomen Severity: similar to prior episodes Exacerbating factors: other (lights) Related Data Home Medications ?Medication ?Instructions ?Recorded ?Confirmed buprenorphine 8 mg-naloxone 2 mg 2 film sublingual KAYLIE LY 11/30/20 10/18/21 sublingual film (Suboxone) Previous Rx's ?Medication ?Instructions ?Recorded xlqzwpymea-vpbdjcufecmnx-hxupvzcw 1 tab PO Q6H PRN henry n #14 tabs 10/18/21 50 mg-325 mg-40 mg tablet carbamide peroxide 6.5 % ear drops 5 drp otic (ears) D AILY 4 days #15 10/18/21 (Debrox) mL ibuprofen 800 mg tablet 800 mg PO Q8H PRN pain #14 t abs 10/18/21 cyclobenzaprine 10 mg tablet 10 mg PO TID PRN pain #14 tabs 06/21/22 ketorolac 10 mg tablet 10 mg PO Q8H PRN pain #14 ta bs 06/21/22 hollqcfwgt-jqxfvxqydgsxd-dwecnbpu 1 cap PO Q4-6H PRN h eadache #14 08/13/23 50 mg-300 mg-40 mg capsule caps (Fioricet) dkvthogftb-oydxojojyaxoq-zghmrgnz 1 cap PO Q8H PRN henry n #7 caps 07/28/25 50 mg-300 mg-40 mg capsule (Fioricet) famotidine 20 mg tablet 20 mg PO DAILY #14 tabs 07/08 12/01 Allergies Allergy/AdvReac Type Severity Reaction Status Date / Time No Known Allergies Allergy Mild NOT Verified 07/28/25 07:15 APPLICABLE Review of Systems 2 Constitutional: Constitutional: Reports as per HPI Eyes: Eyes: Reports as per HPI ENT: Reports as per HPI Cardiovascular: Cardiovascular: Reports as per HPI Respiratory: Respiratory: Reports as per HPI Gastrointestinal: Gastrointestinal: Reports as per HPI Genitourinary: Genitourinary: Reports as per HPI Musculoskeletal: Musculoskeletal: Reports as per HPI Integumentary/Breasts: Skin/Breast: Reports as per HPI Neurologic: Reports as per HPI Psychiatric: Psychiatric: Reports as per HPI Endocrine: Endocrine: Reports as per HPI Hematologic/Lymphatic: Hematologic/Lymphatic: Reports as per HPI Allergic/Immunologic: Allergic/Immunologic: Reports as per HPI COUNT INCLUDES THE [facility] Past Medical History Attestation statement: The following information was validated with the patient. Source: old records reviewed and nursing notes reviewed Medical History Hepatitis C Surgical History Hx of hand surgery History of appendectomy Family History Family History Father In good health Mother In good health Daughter In good health Son In good health Son In good health Sister No problems noted. Sister No problems noted. Brother No problems noted. Brother No problems noted. Social History Social History Household Members: Family Alcohol intake: current Alcohol intake frequency: 3 or more drinks per day Patient Tobacco Use Status: Current everyday Tobacco user Cigarettes Per Day: 4 Smoked in Last 30 Days: Yes e-Cigarette/Vaping Use: Never Used Use of substances other than those prescribed or required for medical reasons: Yes Substance Use Type: Crack/Cocaine Substance Use Frequency: Occasionally Advance Directives: No Advance Directives Information Provided: No Physical Exam ED Vital Signs: Vital Signs - 24 hr 07/28/25 07:12 Temperature 98.6 F Pulse Rate 65 Respiratory Rate 18 Blood Pressure 127/72 Pulse Oximetry 98 Oxygen Delivery Method Room Air BMI result Body Mass Index 25.0 Const General: no acute distress, alert, awake and tired appearing Nutritional Appearance: average body habitus Orientation/consciousness: patient oriented x3 HENMT Head: Yes normocephalic and Yes atraumatic Ears: hearing grossly normal bilaterally and external ears normal General nose exam: Normal external nose present, no nasal discharge noted and no epistaxis Face and sinus: Yes normal facial exam, No abrasion and No laceration Mouth: Normal oral and palatal mucosa present, no drooling and no muffled voice Eyes General: appearance normal, both eyes and all related structures Periorbital: periorbital findings normal Eyelids: Yes eyelids normal Conjunctivae: conjunctivae normal Pupils: Equal, round and reactive pupils present EOM: EOMs intact bilaterally Neck Neck: Yes normal visual inspection and Yes full ROM Resp Effort & Inspection: normal respiratory effort and able to speak in complete sentences GI Palpation (GI): Soft to palpation and Other GI palpation findings present (tenderness to deep palpation in upper quadrants) Neuro General: patient oriented x3 Cranial nerves: Yes Equal, round and reactive pupils present Cognition (Neuro): normal cognition Extrem General: Yes normal to inspection, Yes full ROM and Yes capillary refill normal Psych Appearance: grossly normal Mental Status: mental status grossly normal Affect: normal affect Attitude: cooperative Thought process: Normal thought process present Thought content: Normal thought content present Insight: Good insight present (Psych) Medications Administered Discontinued Medications Generic Name Dose Route Start Last Admin Trade Name Freq PRN Reason Stop Dose Admin Acetaminophen/Butalbital/Caffeine 1 tab 07/28/25 07:43 07/28/25 07:53 Butalb/Acetamin/Caff 50/325/40 Tablet PO 07/28/25 07:44 1 tab ONCE ONE Administration Al Hydroxide/Mg Hydroxide 15 ml 07/28/25 07:44 07/28/25 07:52 Magnesium Hydrox/Alum Hydrox 30 Ml Oral.Susp PO 07/28/25 07:45 15 ml ONCE ONE Administration Sodium Chloride 1,000 mls @ 999 mls/hr 07/28/25 07:45 07/28/25 07:53 Ns IV 07/28/25 08:45 999 mls/hr .Q1H1M DONNA Administration Ketorolac Tromethamine 15 mg 07/28/25 07:43 07/28/25 07:52 Ketorolac Tromethamine 15 Mg/Ml Vial IVPUSH 07/28/25 07:44 15 mg ONCE ONE Administration Pantoprazole Sodium 40 mg 07/28/25 07:44 07/28/25 07:52 Pantoprazole Sodium 40 Mg/10 Ml Vial IVPUSH 07/28/25 07:45 40 mg ONCE ONE Administration Medical Decision Making Medical Decision Making [facility] Narrative: Patient is a 39 year old assigned male at with a history of hepatitis C and migraines presenting to the emergency department today with a headache and epigastric pain. Patient's physical exam was as noted in the physical exam portion of this note and unremarkable. No meningeal signs. Patient's blood work was unremarkable. Patient's EKG was unremarkable. Patient's clinical presentation is most consistent with a migraine headache and GERD. I explained my physical exam findings as well as all test results to the patient. I answered all questions asked by the patient. Patient received Firoicet, toradol, protonix, and fluids which, upon re- evaluation, he stated it helped his symptoms significantly. I stressed the importance of the patient taking his medication as directed (either prescribed or as the over the counter packaging recommends). I stressed the importance of the patient following up with his primary care provider and his neurologist. I stressed the importance of the patient returning to the emergency department immediately if his symptoms were to worsen or if he were to develop any dizziness, shortness of breath, difficulty breathing, chest pain, blurry vision, loss of vision, nausea, vomiting, abdominal pain, fever, chills, back pain, or any other complaints. Patient verbalized agreement and understanding with this treatment plan and discharge. Differential Diagnosis Differential Diagnoses: The differential diagnosis associated with the presentation includes GERD Migraine Headache Admission/Observation Consideration of admission/observation: Escalation of care including admission/observation considered Patient would have been admitted to the hospital had his work up had any findings where hospital admission was appropriate and his clinical presentation warranted hospital admission. Lab Data [facility] Lab Attestation statement: I reviewed the patient's lab results. My interpretation of these results are in the MDM Rationale portion of this note. 07/28/25 07:31 07/28/25 07:31 Labs: Lab Results 07/28/25 Range/Units 07:31 WBC 7.2 (4.8-10.8) X10*3/uL RBC 4.54 L (4.60-5.80) X10*6/uL Hgb 13.3 L (14.0-18.0) g/dl Hct 38.6 L (42.0-52.0) % MCV 85.0 (80.0-98.0) fL MCH 29.3 (27.0-33.0) pg MCHC 34.5 (31.0-36.0) g/dl RDW 13.3 (11.0-16.0) % Plt Count 188 (160-400) X10*3/uL MPV 9.4 (9.4-12.4) fL Immature Gran % (Auto) 0.1 (0.0-0.4) % Neut % (Auto) 59.9 (45-73) % Lymph % (Auto) 30.1 (20-40) % [place] % (Auto) 8.2 (2-11) % Eos % (Auto) 1.0 (0-4) % Baso % (Auto) 0.7 (0-2) % Lymph # (Auto) 2.2 (1.2-4.9) X10*3/uL [place] # (Auto) 0.6 (0.1-1.2) X10*3/uL Eos # (Auto) 0.1 (0.0-0.4) X10*3/uL Baso # (Auto) 0.1 (0.0-0.2) X10*3/uL Abs Immat Gran (auto) 0.01 (0.00-0.03) X10*3/uL Absolute Neuts (auto) 4.3 (2.0-8.3) x10*3/uL Absolute Nucleated RBC 0.000 (0.0-0.012) X10*3/uL Nucleated RBC % (auto) 0.0 (0.0-0.2) /100WBC Sodium 141 (135-145) mmol/L Potassium 3.9 (3.3-5.1) mmol/L Chloride 107 (96-108) mmol/L Carbon Dioxide 26 (22-29) mmol/L Anion Gap 12 (12-20) BUN 11 (9-16) mg/dL Creatinine 0.76 (0.5-1.4) mg/dL Estim Creat Clear Calc 140.3 Estimated GFR > 60 Random Glucose 95 (60-115) mg/dL Calcium 9.5 (8.4-10.2) mg/dL Total Bilirubin 1.0 (0.0-1.0) mg/dL AST 33 (5-37) U/L ALT 19 (0-40) U/L Alkaline Phosphatase 80 (39-117) U/L Troponin I High Sens 3.9 (<3.5-35.0) ng/L Total Protein 7.7 (6.5-8.0) g/dL Albumin 4.9 (3.5-5.0) g/dL Lipase 15 (8-78) U/L Independent Interpretation I performed an independent interpretation of an: EKG Interpretation: I independently interpreted this EKG and am in agreement with the below findings: Vent. Rate: 54 BPM Atrial Rate: 54 BPM P-R Int: 172 ms QRS Dur: 92 ms QT Int: 410 ms P-R-T Axes: 48 28 11 degrees QTcB Int: 388 ms Sinus bradycardia with marked sinus arrhythmia When compared with ECG of 16-Apr-2014 11:21, No significant change was found DD/ 0750 Tests considered The following testing was considered but not selected: I considered obtaining a CT scan of the abdomen/pelvis and head however, the patient's current clinical presentation did not warrant this. Prescription Management I considered prescription management with: Pain Medication (patient prescribed pain medication) Discharge Plan Discharge Clinical Impression: Migraines, Gastroesophageal reflux disease Patient Disposition: Home, Self-Care Instructions: Migraine Headache (ED), GERD (Gastroesophageal Reflux Disease) (DC) Additional Instructions: Your work up today was unremarkable. I am suspicious this is a migraine and you have GERD / acid reflux. Take your medication as prescribed and follow up with your PCP + neurologist. IF you are prescribed home medications and/or you are taking over the counter medications at home - it is very important you continue to do so as prescribed / directed unless told otherwise. Follow up with your primary care provider. Return to the emergency department immediately if your symptoms worsen or if you develop any numbness, tingling, dizziness, shortness of breath, difficulty breathing, chest pain, blurry vision, loss of vision, nausea, vomiting, abdominal pain, fever, chills, back pain, or any other complaints. Please see the information below about our Patient Portal. If you are not yet enrolled in the [facility] Patient Portal, you will receive an enrollment email invitation following your visit to any [facility] setting. You may also self-enroll in the Patient Portal by visiting our website: [email or web address] The following information is required to access the Patient Portal: - Your [facility] Medical Record Number - Your personal home email address (must match what is in your electronic medical record, Registration staff can assist with this) - Name - Date of Capabilities of the Patient Portal: - Message some providers - View upcoming appointments - Access your health summary, medical history, and visit history - View current conditions and allergies - View procedure and lab results - View your medications, including guidelines, side effects, and precautions - Complete pre-appointment questionnaires requested by your provider - Ready summary reports of your office visits and procedures To access the Patient Portal Mobile [employer], follow these directions: - Search [employer] in the [employer] Store or [employer] Store - Download the [employer] - Search for [facility] - Enter your login/password Prescriptions: New famotidine 20 mg tablet 20 mg PO DAILY Qty: 14 0RF puckrihvud-fwesdwqijwsxm-wran [Fioricet] 50-300-40 mg capsule 1 cap PO Q8H PRN (Reason: pain) Qty: 7 0RF No Action cyclobenzaprine 10 mg tablet 10 mg PO TID PRN (Reason: pain) Qty: 14 0RF ketorolac 10 mg tablet 10 mg PO Q8H PRN (Reason: pain) Qty: 14 0RF Rx Instructions: First dose given in the ED IM, patient tolerated well fmahjbbpyx-karybdvjpvlxx-wwof [Fioricet] 50-300-40 mg capsule 1 cap PO Q4-6H PRN (Reason: headache) Qty: 14 0RF buprenorphine-naloxone [Suboxone] 8-2 mg film 2 film sublingual DAILY Rx Instructions: place 1 strip/tab under (each) side of tongue Debrox 6.5 % drops 5 drp otic (ears) DAILY 4 Days Qty: 15 0RF ibuprofen 800 mg tablet 800 mg PO Q8H PRN (Reason: pain) Qty: 14 0RF rrygzeplzw-vnyjzzuaztftm-znri 50-325-40 mg tablet 1 tab PO Q6H PRN (Reason: pain) Qty: 14 0RF Rx Instructions: please cancel previous RX for 60 tablets, and fill this RX for 14 Referrals: April Gill MD [Primary Care Provider, Internal Medicine] Stand Alone Forms: Work/School Release Print Language: Estonian
[2025-07-28 07:35] LABS: MANUAL DIFF FLAG NO
[2025-07-28 07:37] LABS: Hematocrit 38.6 % (42.0-52.0); Hemoglobin 13.3 g/dl (14.0-18.0); Imm Gran Abs Auto 0.01 X10*3/uL (0.00-0.03); Imm Gran Pct Auto 0.1 % (0.0-0.4); Lymphocytes Absolute Auto 2.2 X10*3/uL (1.2-4.9); Mean Corpuscular HGB Conc 34.5 g/dl (31.0-36.0); Mean Corpuscular Hemoglobin 29.3 pg (27.0-33.0); Mean Corpuscular Volume 85.0 fL (80.0-98.0); NRBC Abs Auto 0.000 X10*3/uL (0.0-0.012); NRBC Pct Auto 0.0 /100WBC (0.0-0.2); Platelet Count 188 X10*3/uL (160-400); Red Blood Count 4.54 X10*6/uL (4.60-5.80); White Blood Count 7.2 X10*3/uL (4.8-10.8)
--- NOTE | 2025-07-28 07:45 | ECG_ITS ---
Test Reason : epigastric pain Blood Pressure : */* mmHG Vent. Rate : 54 BPM Atrial Rate : 54 BPM P-R Int : 172 ms QRS Dur : 92 ms QT Int : 410 ms P-R-T Axes : 48 28 11 degrees QTcB Int : 388 ms Sinus bradycardia with marked sinus arrhythmia Otherwise normal ECG When compared with ECG of 16-Apr-2014 11:21, No significant change was found Referred By: Tori Agee Electronically Signed By: JUDY CR MD
[2025-07-28 07:51] LABS: Alanine Aminotransferase 19 U/L (0-40); Albumin Level 4.9 g/dL (3.5-5.0); Alkaline Phosphatase 80 U/L (39-117); Anion Gap 12 (12-20); Aspartate Amino Transferase 33 U/L (5-37); Blood Urea Nitrogen 11 mg/dL (9-16); Calcium 9.5 mg/dL (8.4-10.2); Carbon Dioxide 26 mmol/L (22-29); Chloride 107 mmol/L (96-108); Creatinine Clr Calc Pharmacy 140.3; Estimated Glomerular Filt Rate > 60; Lipase 15 U/L (8-78); Potassium 3.9 mmol/L (3.3-5.1); Sodium 141 mmol/L (135-145); Total Protein 7.7 g/dL (6.5-8.0)
[2025-07-28] MEDS: Magnesium Hydrox/Alum Hydrox 30 ML ORAL.SUSP 15 ML PO (07:52)
[2025-07-28] MEDS: Butalb/Acetamin/Caff 50/325/40 TABLET 1 TAB PO (07:53)
--- OUTSIDE RECORDS SUMMARY | 2025-07-28 08:07 | XMS_ITS | Encounter Summary ---
Author Organization [employer] Address [address] [facility] 7t [place] [address] Care Team Providers Care Well Logging Captain Name Role Phone Eva Singh FRANCISCO JAVIER Primary Care Provider [phone] Reason for Visit * Reason Comments Med Refill Encounter Details Date Type Department Care Team ([facility] st Contact Info) Description 12/11/2024 Refill [facility] MEDICINE [address] [place] [address] Mateo White MD [address] [place], [place] [phone] Uncomplicated opioid dependence (CMS/HCC) Social History Tobacco Use Types Packs/Day Years Used Date Smoking Tobacco: Every Day Cigarettes Smokeless Tobacco: Never Comments:Smokes on the weeke nds 6 sticks Alcohol Use Standard Drinks/Week Comments Yes 6 (1 standard drink = 0.6 oz pur e alcohol) Depression Answer Date Recorded Patient Health Questionnaire-9 Score 0 04/05/2023 Housing Stability Answer Date Recorded What is your housing situation today? I have eileen gallagher 07/23/[address] you li ve. Do you have problems with any of the following? None of the above 07/23/2023 Food Insecurity Answer Date Recorded Within the past 12 months, y ou worried that your food would run out before you got money to buy more: Never True 07/23/2023 Within the past 12 months,th e food you bought just didn't last and you didn't have enough money to get more: Never True Transportation Answer Date Recorded In the past 12 months, has l ack of transportation kept you from medical appts, meetings, work or from getting things needed for daily living? No 07/23/2023 Utilities Answer Date Recorded In the past 12 months, has t he electric, gas, oil or water company threatened to shut off services in your home? No 07/23/2023 Depression Answer Date Recorded Patient Health Questionnaire-2 Score 0 04/05/2023 Sex and Gender Information Value Date Recorded Sex Assigned at Male 08/06/2022 10:15 AM EDT Legal Sex Male 10:15 AM EDT Gender Identity Male 08/06/2022 10:15 AM EDT Sexual Orientation Straight 08/06/2022 10 :15 AM EDT documented as of this encounter Plan of Treatment Upcoming Encounters Date Type Department Care Team (Late st Contact Info) Description 07/30/2025 10:30 AM EDT Office Visit [facility] MEDICINE [address] [place] [phone] Mateo White MD [address] [place] [phone] 07/30/2025 1:00 PM EDT Office Visit [facility] ADULT DENTAL [address] [place] [phone] 10/22/2025 10:30 AM EST Office Visit [facility] MEDICINE [address] [place] [phone] Mateo White MD [address] [place] [phone] documented as of this encounter Visit Diagnoses Diagnosis Uncomplicated opioid dependence (CMS/HCC) (HCC) documented in this encounter Additional Health Concerns Assessment Noted Time PHQ-9 Depression Total Score: 0 04/05/20 11:11 AM EDT documented as of this encounter Care Teams Well Logging Captain Relationship Specialty Start Date End Date Eva Singh NP [address] [place] [phone] PCP - General Family Medicine 08/16/23 documented as of this encounter
--- OUTSIDE RECORDS SUMMARY | 2025-07-28 08:07 | XMS_ITS | Encounter Summary ---
Author Organization [employer] Address [address] [facility] 7t [place] [address] Care Team Providers Care Edge Dyer Name Role Phone Eva Singh FRANCISCO JAVIER Primary Care Provider [phone] Reason for Visit * Reason Onset Date Comments Med Refill 07/26/2025 Encounter Details Date Type Department Care Team (Late st Contact Info) Description 07/26/[address] [facility] MEDICINE [address] [place] [address] Valencia Melendrez, RN Opioid dependence in remission (CMS/HCC) ([facility]) Social History Tobacco Use Types Packs/Day Years [...] t he electric, gas, oil or water inTarvo threatened to shut off services in your [...] Description 07/30/2025 10:30 AM EDT Office [address] [facility] MEDICINE [address] [place] [phone] Mateo White MD [address] [place] [phone] 07/30/2025 1:00 PM EDT Office Visit [facility] ADULT DENTAL [address] [place] [phone] 10/22/2025 10:30 AM EST Office Visit [facility] MEDICINE [address] [place] [address] Mateo White MD [address] [place] [phone] documented as of this encounter Goals Goal Patient Goal Type Associated Problems Recent Progress Patient-Stated? Author see the dentist to address cavity situation. General Yes Valencia Melendrez RN Decrease the frequency of unwanted emotions so that daily functioning is improved General No Valencia Melendrez, RN documented as of this encounter Visit Diagnoses Diagnosis Opioid dependence in remission (CMS/HCC) (HCC) Opioid type dependence, in remission documented in this encounter Additional Health Concerns Assessment Noted Time PHQ-9 Depression Total Score: 0 04/05/20 23 11:11 AM EDT documented as of this encounter Care Teams Edge Dyer Relationship Specialty Start Date End Date Eva Singh NP [address] [place] [phone] PCP - General Family Medicine 08/16/23 documented as of this encounter
--- OUTSIDE RECORDS SUMMARY | 2025-07-28 08:07 | XMS_ITS | Encounter Summary ---
Author Organization [employer] Address [address] [facility] 7[address] [place] [address] Care Team Providers Care Paper Tube Machine Operator Name Role Phone Eva Singh FRANCISCO JAVIER Primary Care Provider [phone] Reason for Visit * Reason Comments Med Refill Encounter Details Date Type Department Care Team ([facility] st Contact Info) Description 07/23/2025 Refill [facility] MEDICINE [address] [place] [address] Mateo White MD [address] [place] [address], [place] [phone] Opioid dependence in remission (CMS/HCC) ([facility]) Social History Tobacco Use Types Packs/Day Years [...] Description 07/30/2025 10:30 AM EDT Office Visit [facility] MEDICINE [address] [place] [phone] Mateo White MD [address] [place] [phone] 07/30/2025 1:00 PM EDT Office Visit [facility] ADULT DENTAL [address] [place] [address] 10/22/2025 10:30 AM EST Office Visit [facility] MEDICINE [address] [place] [phone] Mateo White MD [address] [place] [phone] documented as of this encounter Goals Goal Patient Goal Type Associated Problems Recent Progress Patient-Stated? Author see the dentist to address cavity situation. General Yes Valencia Melendrez, RN Decrease the frequency of unwanted emotions [...] documented as of this encounter Care Teams Paper Tube Machine Operator Relationship Specialty Start Date End Date Eva Singh NP [address] [place] [phone] PCP - General Family Medicine 08/16/23 documented as of this encounter
--- OUTSIDE RECORDS SUMMARY | 2025-07-28 08:07 | XMS_ITS | Clinical Summary ---
Author Organization [employer] Address [address] [facility] 7t [place] [address] Care Team Providers Care Finisher Hot Strip Name Role Phone TerryEva cardona FRANCISCO JAVIER Primary Care Provider [phone] Allergies No known active allergies Medications amitriptyline (Elavil) 10 MG tabletIndicati ons:Chronic migraine without aura without status migrainosus, not intractable Take 1 tablet (10 mg) by mouth at bedtime. 30 tablet 08/16/20 23 Active Additional Information Patient not taking.Reported on 03/26/2025 Glecaprevir-Pi brentasvir (Mavyret) 100-40 MG tablet Take 3 tablets by mouth in the morning. 84 tablet 1 09/05/20 23 Active Additional Information Patient not taking.Reported on 03/26/2025 SUMAtriptan (Imitrex) 25 MG tabletIndicati ons:Chronic migraine without aura without status migrainosus, not intractable TAKE 1 TABLET BY MOUTH AT ONSET OF MIGRAINE. MAY REPEAT ONCE AFTER 2 HOURS IF NEEDED DO NOT EXCEED 2 TABLETS IN 24 HOURS 10 tablet 09/09/20 23 Active Additional Information Patient not taking.Reported on 03/26/2025 Buprenorphine HCl-Naloxone HCl (Suboxone) 8-2 MG SL filmIndication s:Opioid dependence in remission (CMS/HCC) ([facility]) Place 1 Film under the tongue 2 times daily. Do not start before July 30, 2025. 56 Film 2 07/30/20 25 026 Active Buprenorphine HCl-Naloxone HCl (Suboxone) 8-2 MG SL filmIndication s:Opioid dependence in remission (CMS/HCC) ([facility]) Place 1 Film under the tongue 2 times daily. Do not start before May 07, 2025. 56 Film 2 05/07/20 025 Discontinued(R eorder (will not trigger notification to Pharmacy)) Active Problems Problem Noted Date Diagnosed Date History of hepatitis C virus infection 4 Overview (07/27/2024): Under went treatment and is cured as of 07/13/2024 Chronic migraine without aur a without status migrainosus, not intractable 08/16/2023 Assessment & Plan (08/16/2023 2:26 PM EST): -start amitriptyline 10 mg nightly for prophylaxis. -imitrex rx provided for aborptive treatment along with motrin. Do not take more than 2/day -discontinue fioricet use -monitor for worsening symptoms -will f/u in 3 months to assess medication effectiveness Routine adult health maintenance 08/16/2023 Assessment & Plan (08/16/2023 2:25 PM EST): -flu shot given today -elevated LFT. Will defer lipid testing till after hep C treatment is proving to be successful Encounters Date Type Department Care Team Description 07/26/2025 Refill [facility] [address] [facility] [place] [address] Valencia Melendrez RN Opioid dependence in remission (CMS/HCC) ([facility]) 07/23/2025 Refill [facility] MEDICINE [address] [place] [address] Mateo White MD Opioid dependence in remission (CMS/HCC) ([facility]) 06/28/2025 Telephone [facility] MEDICINE [address] [facility] [place] [address] Valencia Melendrez RN 05/07/2025 11:00 AM EDT Clinical Support [facility] MEDICINE [address] [facility] [place] [phone] Valencia Melendrez RN Uncomplicated opioid dependence (CMS/HCC) (Primary Dx) 05/07/2025 Travel 04/30/2025 Refill [facility] MEDICINE [address] [facility] [place] [address] Valencia Melendrez, RN Opioid dependence in remission (CMS/HCC) from Last 3 Months Immunizations Immunization Administration Dates Next Due Influenza injectable quadrivalent preservative f ree 08/16/2023 Moderna Covid-19 Vaccine 6+ Bivalent 09/25/2022 Tdap 03/06/2017 Family History Medical History Relation Name Comments Diabetes Brother Relation Name Status Comments Brother Social History Tobacco Use Types Packs/Day Years Used Date Smoking Tobacco: Every Day Cigarettes Smokeless Tobacco: Never Tobacco Cessation:Ready to Q uit: Not Asked Comments:Smokes on the weekends 6 sticks Alcohol Use Standard Drinks/Week Comments [...] Orientation Straight 08/06/2022 10 :15 AM EDT Last Filed Vital Signs Vital Sign Reading Time Taken Comments Blood Pressure 116/82 03/26/2025 1:02 PM EDT Pulse 72 03/26/2025 1:02 PM EDT Temperature 36.6 C (97.8 F) 08/16/2023 1:29 PM EST Respiratory Rate 18 08/16/2023 1:29 PM EST Oxygen Saturation 98% 08/16/2023 1:29 PM EST Inhaled Oxygen Concentration - - Weight 91.3 kg (201 lb 3.2 oz) 08/16/2023 1:29 P M EST Height 175.3 cm (5' 9 ) 08/16/2023 1:29 PM EST Body Mass Index 29.71 08/16/2023 1:29 PM EST Plan of Treatment Upcoming Encounters Date Type Department Care Team (Late st Contact Info) Description 07/30/2025 10:30 AM EDT Office Visit [facility] MEDICINE [address] [place] [phone] Mateo White MD [address] [place] [phone] 07/30/2025 1:00 PM EDT Office Visit [facility] ADULT DENTAL [address] [place] [phone] 10/22/2025 10:30 AM EST Office Visit [facility] MEDICINE [address] [place] [phone] Mateo White MD [address] [place] [phone] Health Maintenance Due Date Last Done Comments Lipid Panel 1983 Disability Screening 1983 Alcohol/Substance Use Screening 1995 Family Planning (PISQ) 1998 HPV Vaccines (1 - Male 3-dos e series) 1998 Hepatitis A Vaccines (1 of 2 - Risk 2-dose series) 2002 Hepatitis B Vaccines (1 of 3 - 19+ 3-dose series) 2002 Pneumococcal Vaccine: Pediatrics (0 to 5 Years) and At-Risk Patients (6 to 49) Years (1 of 2 - PCV) 2002 Depression Screening 04/05/2024 04/05/2023, 04/05/2023 SDOH Screening 04/05/2024 04/05/2023 COVID-19 Vaccine (4 - 2024-2 6 season) 2025 09/25/2022, 03/22/2022, 02/20/2022 Influenza Vaccine (#1) 2025 08/16/2023 Dental Oral Exam 09/26/2025 03/26/2025 Dental Prophylaxis 09/26/2025 03/26/2025 Tobacco Screening 03/26/2026 03/26/2025 Dental X-Ray: Bitewings 03/27/2026 03/26/2025 DTaP/Tdap/Td Vaccines (2 - T d or Tdap) 03/06/2027 03/06/2017 Dental X-Ray: Full Mouth 03/27/2028 03/26/2025 Zoster Vaccines (1 of 2) 2033 RSV Patients and Patients Aged 60 years or older (1 - 1-dose 75+ series) 2058 HIV Screening Completed 08/16/2023 HIB Vaccines Aged Out No longer eligi ble based on patient's age to complete this topic IPV Vaccines Aged Out No longer eligi ble based on patient's age to complete this topic Meningococcal B Vaccine Aged Out No l onger eligible based on patient's age to complete this topic Meningococcal Vaccine Aged Out No sintia melissa eligible based on patient's age to complete this topic RSV under 20 months Aged Out No longe r eligible based on patient's age to complete this topic Rotavirus Vaccines Aged Out No longer eligible based on patient's age to complete this topic Goals Goal Patient Goal Type Associated Problems Recent Progress Patient-Stated? Author see the dentist to address cavity situation. General Yes Valencia Melendrez, RN Decrease the frequency of unwanted emotions so that daily functioning is improved General No Valencia Melendrez, compress engineer Procedure Name Priority Date/Time Associated Diagnosis Comments POCT JOSE CRUZ-14 URINE DRUG SCREEN Routine 05/07/2025 11:14 AM EDT Uncomplicated opioid dependence (CMS/HCC) PROPHYLAXIS - ADULT Routine 03/26/2025 1 :00 PM EDT INTRAORAL - COMPLETE SERIES OF RADIOGRAPHIC IMAGES Routine 03/26/2025 1:00 PM EDT COMPREHENSIVE ORAL EVALUATION - NEW OR ESTABLISHED PATIENT Routine 03/26/2025 1:00 PM EDT HIV 1/2 ANTIGEN/ANTIBODY, FOURTH GENERATION W/RFL Routine 08/16/2023 2:19 PM EST Uncomplicated opioid dependence (CMS/HCC) from Last 3 Months or Most Recently Relevant to Health Maintenance Results * (ABNORMAL) POCT JOSE CRUZ-14 Urine Drug Screen (05/07/2025 11:14 AM EDT) THC Positive(A) Negative Cocaine Screen, Urine Negative Negative Opiate Screen, Urine Negative Negative Methamphetamine Screen Urine Negative Negative Amphetamine Screen, Urine Negative Negative Benzodiazepines Screen, Urine Negative Negative Barbiturate Screen, Urine Negative Negative Methadone Screen, Urine Negative Negative Buprenophine Screen, Urine Positive(A) Negative TCA, Urine Negative Negative MDMA Urine Negative Negative ng/mL Oxycodone Screen, Urine Negative Negative Phencyclidine (PCP), Urine Negative Negative Fentanyl, Urine Negative Negative Urine Urine specimen obtained by clean catch procedure / Unknown 05/07/2025 11:14 AM EDT Devaughn Alvarez MD POINT OF CARE TEST ENTER/EDIT OR DERABLES Final Result * HIV-1/2 Antigen and Antibodies, Fourth Generation, with Reflexes (08/16/2023 2:19 PM EST) Pathologist [facility] HIV AB/AG Nonreactive Nonreactive [facility] Comment:HIV-1 p24 Ag and/or HIV-1/HIV-2 Ab not detected.A test result that is nonreactive does not exclude thepossibility of exposure to or infection with HIV-1 and/orHIV-2. Nonreactive results in this assay for individualswith prior exposure to HIV-1 and/or HIV-2 may be due toantigen and antibody levels that are below the limit ofdetection of this assay.The [employer] HIV Ag/Ab Combo assay result andsupplemental assay results should be interpreted inconjunction with the patient's clinical presentation,history and other laboratory results. If the results areinconsistent with clinical evidence, additional testing issuggested to confirm the result. Blood Venous blood specimen / Unknown 08/16/2023 2:19 PM EST 08/16/2023 4:06 PM EST Mateo White MD LAB BLOOD ORDERABLES Final Res ult [facility] [address] [place] [address] [phone] from Last 3 Months or Most Recently Relevant to Health Maintenance Insurance [place] [facility] MEDICAID STAND ADULT Care Teams Finisher Hot Strip Relationship Specialty Start Date End Date Eva Singh NP [address] [place] [address] PCP - General Family Medicine 08/16/23
[2025-07-28 08:20] LABS: Troponin-I High Sensitivity 3.9 ng/L (<3.5-35.0)
[2025-07-28 09:18] VITALS: BP 126/66; PULSE 50; RESP 16; TEMP -17.7; TEMP 0
== END 2025-07-28 09:19 | disposition home or self-care (01) ==
PROVIDERS: Physician Assistant Medical; Emergency Provider Emergency Medicine; PCP Internal Medicine
DX: G43.909 Migraine, unspecified, not intractable, without status migrainosus (principal); K21.9 Gastro-esophageal reflux disease without esophagitis; R10.13 Epigastric pain; R00.1 Bradycardia, unspecified
CPT/HCPCS: 36415; 80053; 83690; 84484; 85025; 93005; 96361; 96374; 96375; 99284; 99285; J1885; J2470

== ENCOUNTER → 2025-07-28 07:45 | Outpatient (BNV) | payer SELFPAY | PROVIDERS: Emergency Provider Emergency Medicine; PCP Internal Medicine; Visit Provider Internal Medicine Cardiovascular Disease | DX: R00.1 Bradycardia, unspecified (principal) | CPT/HCPCS: 93010 ==